=== PATIENT | female | born 1985 | race African-American/Black ===

== ENCOUNTER 2017-04-21 14:49 | Emergency (ER) | payer OTHER ==
[~2017-04-21 14:49] MED LIST: ACETAMINOPHEN325 M1 PO; AFRIN15 ML NS; BACTRIM DS TAB1 EACH PO; BIRTH CONTROL; CLEOCIN HCL150 MG PO; DELTASONE20 MG PO; DOXYCYCLINE 10100 MG PO; EPIPEN 2-P0.3 MG/0.3 IM; FAMOTIDINE20 MG PO; HYDROCODONE-AP1 EAC6 PO; IBUPROFEN 800800 M1 PO; IMITREX100 MG PO; METFORMIN HCL500 MG PO; NAPROSYN500 MG PO; NO HOME MEDS; NORCO 5-325 TA1 EACH PO; PENICILLIN V P500 MG PO; PENICILLIN VK500 M1 PO; SUMATRIPTAN SUC50 MG PO; TESSALON PERLE100 MG PO; TOPAMAX50 MG PO; TORADOL 10 MG T10 MG PO; TRAMADOL 50 MG50 MG; TRAMADOL 50 MG50 MG PO; ULTRAM 50MG TAB50 MG PO
[2017-04-21] MEDS ORDERED: IBUPROFEN 800800 M1 PO (16:19)
== END 2017-04-21 17:20 | disposition home or self-care (01) ==
LOC: ER 14:49
DX: J02.9 Acute pharyngitis, unspecified (principal); G43.909 Migraine, unspecified, not intractable, without status migrainosus; I10 Essential (primary) hypertension; Z88.0 Allergy status to penicillin

== ENCOUNTER 2017-04-23 19:26 | Emergency (ER) | payer OTHER ==
[~2017-04-23] VITALS: Ht 165.1 cm; Wt 95.3 kg
[2017-04-23] MEDS ORDERED: TESSALON PERLE100 MG PO (21:11)
[2017-04-23] MEDS ORDERED: NAPROSYN500 MG PO (21:16)
== END 2017-04-23 21:28 | disposition home or self-care (01) ==
LOC: ER 19:26
DX: J10.1 Influenza due to other identified influenza virus with other respiratory manifestations (principal); I10 Essential (primary) hypertension; G43.909 Migraine, unspecified, not intractable, without status migrainosus; Z88.0 Allergy status to penicillin

== ENCOUNTER 2017-05-22 14:19 | Emergency (ER) | payer OTHER ==
[~2017-05-22] VITALS: Ht 167.6 cm; Wt 95.3 kg
[2017-05-22] MEDS ORDERED: AZITHROMYCIN 2250 MG PO (15:30)
[2017-05-22] MEDS ORDERED: MOBIC15 MG PO (15:45)
== END 2017-05-22 15:53 | disposition home or self-care (01) ==
LOC: ER 14:19
DX: J02.0 Streptococcal pharyngitis (principal); I10 Essential (primary) hypertension; G43.909 Migraine, unspecified, not intractable, without status migrainosus; Z88.0 Allergy status to penicillin

== ENCOUNTER 2017-11-19 00:24 | Emergency (ER) | payer OTHER ==
[~2017-11-19] VITALS: Ht 165.1 cm; Wt 104.3 kg
--- NOTE | ~2017-11-19 | EKG ---
[place] [address] [facility] [place] [address] ELECTROCARDIOGRAM REPORT Name: MARTINA MCDANIEL Room #: [facility]#: [id number] Admission: 11/19/17 Attend Phys: Discharge: 11/19/17 Date of : 81 Report #: [id number] THIS REPORT FOR: //name// [facility] ED Test Date: 2017-11-19 Test Time: 00:52:47 Pat Name: MARTINA ARORA Department: Room: Gender: F Manager Control: KLARISSA : 1985 Requested By: Fred Barone Order Number: [id number] MD: West Bowman Measurements Intervals [place] Rate: 84 P: 46 CA: 185 QRS: 14 QRSD: 88 T: -21 QT: 410 QTc: 485 Interpretive Statements Sinus rhythm Borderline T abnormalities, diffuse leads Borderline prolonged QT interval Compared to ECG 08/24/2014 03:32:41 No significant changes Electronically Signed On 11-19-2017 13:04:27 CDT by West Bowman [email or web address] <ELECTRONICALLY SIGNED> By: West Bowman MD, [facility] 11/19/17 1304 005 005 West Bowman MD, [facility] /EPI
[~2017-11-19 00:24] MED LIST changes: +AZITHROMYCIN 2250 MG PO; +MOBIC15 MG PO
[2017-11-19] MEDS ORDERED: TOPAMAX 25 MG T25 M1 PO (00:42)
[2017-11-19 01:12] LABS: HEMATOCRIT 32.9 % (37.0-47.0); HEMOGLOBIN 11.2 gm/dL (12.0-15.0); MCH 30.1 pg (26.0-34.0); MCHC 34.1 g/dL (28.0-37.0); MCV 88.2 fL (80.0-100.0); RBC 3.73 mil/uL (4.20-5.00); WBC 6.2 thou/uL (4.0-11.0)
[2017-11-19 01:19] LABS: ANION GAP 13 mmol/L (7-16); BUN 19 mg/dL (7-18); CALCIUM 8.9 mg/dL (8.5-10.1); CHLORIDE 103 mmol/L (98-107); CO2 25 mmol/L (21-32); CREATININE 0.9 mg/dL (0.6-1.0); GLUCOSE 92 mg/dL (74-106); POTASSIUM 3.5 mmol/L (3.5-5.1); SODIUM 141 mmol/L (136-145)
[2017-11-19 01:28] LABS: TROPONIN-I <0.06 ng/mL (<0.06)
[2017-11-19 02:18] VITALS: BP 117/72
== END 2017-11-19 02:19 | disposition home or self-care (01) ==
LOC: ER 00:24
PROVIDERS: Emergency Medicine
DX: M25.511 Pain in right shoulder (principal); I10 Essential (primary) hypertension; G43.909 Migraine, unspecified, not intractable, without status migrainosus; Z88.0 Allergy status to penicillin; Z90.49 Acquired absence of other specified parts of digestive tract

== ENCOUNTER 2018-04-05 07:02 | Emergency (ER) | payer OTHER ==
[~2018-04-05] VITALS: Ht 165.1 cm; Wt 97.5 kg
[~2018-04-05 07:02] MED LIST changes: +TOPAMAX 25 MG T25 M1 PO
[2018-04-05] MEDS ORDERED: KEFLEX500 M1 PO (07:44)
[2018-04-05] MEDS ORDERED: ZOVIRAX800 MG PO (07:45)
[2018-04-05 08:05] VITALS: BP 128/85
== END 2018-04-05 08:00 | disposition home or self-care (01) ==
LOC: ER 07:02
DX: L73.9 Follicular disorder, unspecified (principal); I10 Essential (primary) hypertension; G43.909 Migraine, unspecified, not intractable, without status migrainosus; E28.2 Polycystic ovarian syndrome; Z88.0 Allergy status to penicillin; Z90.49 Acquired absence of other specified parts of digestive tract

== ENCOUNTER → 2021-03-23 | Emergency (ER) | payer OTHER ==
[~2021-03-23] MED LIST changes: +KEFLEX500 M1 PO; +ZOVIRAX800 MG PO
[2021-03-23 19:28] VITALS: BP 143/85
[2021-03-23 20:05] LABS: URINE BILIRUBIN NEGATIVE (Negative); URINE BLOOD 3+ (Negative); URINE CLARITY CLEAR; URINE COLOR YELLOW; URINE GLUCOSE-RANDOM* NEGATIVE (Negative); URINE KETONES NEGATIVE (Negative); URINE LEUKOCYTES-REFLEX NEGATIVE (Negative); URINE NITRITE-REFLEX NEGATIVE (Negative); URINE PROTEIN (DIPSTICK) NEGATIVE (Negative); URINE UROBILINOGEN 0.2 E.U./dl (0.2-1.0)
[2021-03-23 20:11] LABS: BACTERIA-REFLEX 1-9 Few /HPF (None Seen); SQUAMOUS 4-10 Moderate /LPF (0-3); URINE RBC 3-10 Few /HPF (NONE SEEN); URINE WBC-REFLEX 0-5 Rare /HPF (0-5)
[2021-03-23 20:12] LABS: CASTS None Seen /LPF (None Seen); CRYSTALS None Seen /LPF (None Seen)
== END ==
LOC: ER 18:56
PROVIDERS: Emergency Medicine
DX: M54.9 Dorsalgia, unspecified (principal); R06.02 Shortness of breath; I10 Essential (primary) hypertension; G43.909 Migraine, unspecified, not intractable, without status migrainosus; Z90.49 Acquired absence of other specified parts of digestive tract; Z88.0 Allergy status to penicillin